=== PATIENT | female | born 1960 | race Two or more races ===

== ENCOUNTER → 2017-11-03 | Outpatient (CLI) | payer OTHER | LOC: CIMAGING 11:51 | PROVIDERS: ATTEND Family Medicine | DX: S93.402A Sprain of unspecified ligament of left ankle, initial encounter (principal) | CPT/HCPCS: 73610-PO ==

== ENCOUNTER → 2017-11-18 | Outpatient (CLI) | payer OTHER | LOC: CIMAGING 16:26 | PROVIDERS: ATTEND Family Medicine | DX: S82.62XD Displaced fracture of lateral malleolus of left fibula, subsequent encounter for closed fracture with routine healing (principal) | CPT/HCPCS: 73610-PO ==

== ENCOUNTER 2017-11-23 11:46 | Day surgery (SDC) | payer OTHER ==
[2017-11-23] MEDS ORDERED: ceFAZolin 2 GM/DEXTROSE 100 ML IV ONE (12:03)
[2017-11-23] MEDS ORDERED: LR 1,000 ML IV ONE (12:04)
[2017-11-23] MEDS ORDERED: BUPIVACAINE 0.5% 30 ML SDV ONE (12:39)
[2017-11-23] MEDS ORDERED: MIDAZOLAM 2 MG/2 ML VIAL IVP ONE (12:50)
--- NOTE | 2017-11-23 12:50 | PDANEPAE ---
ANE History of Present Illness ankle fracture here for ORIF ANE Past Medical History - Cardiovascular History Hx Hypertension: No Hx Arrhythmias: No Hx Chest Pain: No Hx Coronary Artery / Peripheral Vascular Disease: No Hx CHF / Valvular Disease: No Hx Palpitations: No - Pulmonary History Hx COPD: No Hx Asthma/Reactive Airway Disease: No Hx Recent Upper Respiratory Infection: No Hx Oxygen in Use at Home: No Hx Sleep Apnea: No Sleep Apnea Screening Result - Last Documented: Negative - Neurologic History Hx Cerebrovascular Accident: No Hx Seizures: No Hx Dementia: No Neurologic History Comment: DEVELOPMENTALLY DISABLED - Endocrine History Hx Diabetes: No - Renal History Hx Renal Disorders: No - Liver History Hx Hepatic Disorders: No - Neurological & Psychiatric Hx Hx Neurological and Psychiatric Disorders: Yes Neurological / Psychiatric History Comment: DEPRESSION, ANXIETY, DEVELOPMENTALLY DELAYED - Cancer History Hx Cancer: No - Congenital Disorder History Hx Congenital Disorders: No - GI History Hx Gastrointestinal Disorders: No - Other Health History Other Health History: NA - Chronic Pain History Chronic Pain: No - Surgical History Prior Surgeries: WISDOM TOOTH REMOVAL ANE Review of Systems Review of systems is: negative Review of Systems: - Exercise capacity Exercise capacity: >=4 METS METS (RN): 4 METS ANE Patient History - Allergies Allergies/Adverse Reactions: No Known Allergies Allergy (Unverified 11/03/17 17:14) - Home Medications Home medications: home medication list seen and reviewed Home Medications: Bupropion HCl 150 mg 11/22/17 [Last Taken 11/22/17] Herbals/Supplements -Info Only 11/22/17 [Last Taken 11/22/17] Lexapro 10 MG 11/22/17 [Last Taken 11/22/17] - NPO status NPO Status: no food or drink >8 hours - Smoking Hx Smoking Status: Never smoked - Family Anes Hx Family Hx Anesthesia Complications: NA ANE Labs/Vital Signs - Vital Signs Vital Signs: reviewed preoperatively; see RN documention for details Height: 165.1 cm Weight: 77.111 kg ANE Physical Exam - Airway Neck exam: FROM Mallampati Score: Class 1 - Pulmonary Pulmonary: no respiratory distress - Cardiovascular Cardiovascular: regular rate and rhythym - ASA Status ASA Status: II ANE Anesthesia Plan Anesthesia Plan: GA w [facility] Anesthesia: single shot NB
[2017-11-23] MEDS ORDERED: fentaNYL 100 MCG/2 ML INJ ONE ×3 (13:05→14:57)
[2017-11-23] MEDS ORDERED: PROPOFOL/EMULSION 500 MG/50 ML BOTTLE IV ONE (13:08)
--- NOTE | 2017-11-23 13:08 | PDHPUP ---
History & Physical Update H&P update statement: This history and physical update is based on an assessment of the patient which was completed after admission or registration (within 24 hours), but prior to the surgery/procedure. H&P update: H&P reviewed & patient examined, no change in patient's condition since H&P completed
[2017-11-23] MEDS ORDERED: DEXAMETHASONE 4 MG/ML VIAL ONE (13:45)
[2017-11-23] MEDS ORDERED: ONDANSETRON 4 MG/2 ML VIAL ONE (13:45)
[2017-11-23] MEDS ORDERED: DEXAMETHASONE 4 MG/ML VIAL IVP PRN (14:05)
[2017-11-23] MEDS ORDERED: fentaNYL 100 MCG/2 ML INJ IVP PRN (14:05)
[2017-11-23] MEDS ORDERED: HYDROCODONE/APAP 5/325 TAB PO PRN (14:05)
[2017-11-23] MEDS ORDERED: LR 500 ML IV PRN (14:05)
[2017-11-23] MEDS ORDERED: NS 500 ML IV PRN (14:05)
[2017-11-23] MEDS ORDERED: NALOXONE HCL 0.4 MG/ML INJ IVP PRN (14:05)
[2017-11-23] MEDS ORDERED: ALBUTEROL 3 ML DEYVIAL IH PRN (14:05)
[2017-11-23] MEDS ORDERED: ONDANSETRON 4 MG/2 ML VIAL IVP PRN (14:05)
[2017-11-23] MEDS ORDERED: HYDROmorphONE/DILAUDID 1 MG/ML INJ IVP PRN (14:05)
[2017-11-23] MEDS ORDERED: oxyCODONE IR 5 MG TAB PO PRN (14:05)
[2017-11-23] MEDS ORDERED: ACETAMINOPHEN 500 MG TAB PO PRN (14:05)
[2017-11-23 15:37] VITALS: BP 121/71
--- NOTE | 2017-11-23 18:20 | POSTOPPROG ---
Post Op Note Date of Operation: 11/23/17 Surgeon: Costa Prince Aircraft Navigator: Mckay Anesthesiologist: Mo Anesthesia: GET(General Endotracheal) Pre-op Diagnosis: L lat mal fx Post-op Diagnosis: same Indication: instability Procedure: orif L lat mal Inf/Abcess present in the surg proc area at time of surgery?: No EBL: 50-100
--- NOTE | 2017-11-23 18:28 | POSTANESTH ---
Post Anesthetic Evaluation Cardiovascular Status: Normal, Stable Respiratory Status: Normal, Stable Level of Consciousness/Mental Status: Can Participate in Eval Pain Control: Adequate, Prn Tx Ordered Nausea/Vomiting Control: Adequate, Prn Tx Ordered Complications Possibly Related to Anesthesia: None Noted
--- NOTE | 2017-11-23 20:46 | GOP ---
DATE OF OPERATION: 11/23/2017 SURGEON: Costa Prince MD PROMOTIONAL ADVERTISING ASSISTANT: Benjamin Bashir SA. ANESTHESIA: General. PREOPERATIVE DIAGNOSIS: Left lateral malleolus fracture. POSTOPERATIVE DIAGNOSIS: Left lateral malleolus fracture. PROCEDURE PERFORMED: Open reduction, internal fixation, left lateral malleolus fracture. FINDINGS: SPECIMENS: None. ESTIMATED BLOOD LOSS: 5 mL. INDICATIONS: This a female presented in delayed fashion for this fibular fracture. She had widening and instability on her stress x-ray. I counseled her and her durable power of energy attorney on risks and benefits of surgery. We discussed nerve injury, continued pain, instability, arthritis, nonunion, m alunion, need for hardware removal, and they elected to proceed. Informed consent. All questions we re answered. She was marked in the preoperative area. DESCRIPTION OF PROCEDURE: She was taken the operative suite, sterilely prepped and draped in usual f ashion. Time-out was performed verifying site, side, location, and agreed on by all members of the t [facility]. Esmarch utilized. Tourniquet was inflated and the procedure was begun with the incision over t fibula, dissected down, protecting neurovascular structures. I then mobilized the fracture site a nd debrided the callus. I was able to get this out to length, restored the length, alignment, and ro tation, get a good reduction. I placed a clamp across this and K-wires to hold this, checked this fl uoroscopically, placed the plate with cortical screws. Placed 6 locking screws distally and 4 cortic al screws proximally, as there was concern about compliance with her. I checked x-rays. They were s table, including a stress x-ray. She did not widen. She was irrigated, closed with 0 Vicryl, 2-0 Vi cryl, 3-0 Quill, and Dermabond. Taken to PACU in stable condition with a splint. IMPLANT: Synthes lateral malleolus plate, locking and nonlocking screws. SURGEON: Costa Prince MD. COMPLICATIONS: None. DRAINS: None. CONDITION: Stable. /[id number]/MODL
== END 2017-11-23 15:45 | disposition home or self-care (01) ==
LOC: FSGY 11:46
PROVIDERS: ATTEND Orthopaedic Surgery
PROC: 0QSK04Z Reposition Left Fibula with Internal Fixation Device, Open Approach (ICD-10-PCS; principal; 2017-11-23 13:15)
DX: S82.62XA Displaced fracture of lateral malleolus of left fibula, initial encounter for closed fracture (principal); W17.89XA Other fall from one level to another, initial encounter; X50.9XXA Other and unspecified overexertion or strenuous movements or postures, initial encounter; R62.50 Unspecified lack of expected normal physiological development in childhood
CPT/HCPCS: 27792; C1769; C1713; J0690; J1100; J2250; J2405; J2704; J3010

== ENCOUNTER → 2018-04-26 | Outpatient (CLI) | payer OTHER | LOC: CIMAGING 08:05 | PROVIDERS: ATTEND Family Medicine | DX: Z12.31 Encounter for screening mammogram for malignant neoplasm of breast (principal) ==

== ENCOUNTER → 2018-05-06 | Outpatient (CLI) | payer OTHER | LOC: CIMAGING 12:52 | PROVIDERS: ATTEND Family Medicine | DX: R92.8 Other abnormal and inconclusive findings on diagnostic imaging of breast (principal) | CPT/HCPCS: 76641-PO ==